=== PATIENT | female | born 1935 | race Caucasian/White ===

== ENCOUNTER 2017-09-29 11:01 | Observation (INO) | payer OTHER, MEDICARE ==
[~2017-09-29] VITALS: Ht 154.9 cm; Wt 74.9 kg
[~2017-09-29 11:01] MED LIST: ASPIRIN81 M1 PO; ASPIRIN81 M2 PO; BIOTIN 5000MCG PO; CALTRATE 6001 TABLET PO; CENTRUM SILVER1 EAC3 PO; CENTRUM SILVER1 EAC4 PO; D-BIOTIN5 G1 MC; FERROUS SULFAT325 MG PO; FLONASE16 G1 BOTH NARES; FOLIC ACID0.4 MG PO; HYDROCODON-ACE1 EAC5 PO; KLOR-CON M2020 MEQ PO; LISINOPRIL2.5 MG PO; METOPROLOL SUCC50 MG PO; NAPROSYN375 MG PO; NAPROXEN375 M2 PO; NEXIUM40 MG PO; NORCO 5/3251 TABLET PO; OMEPRAZOLE40 M1 PO; OXAYDO5 MG PO; OXYCODONE HCL5 MG PO; PROBIOTIC1 EAC1 PO; SIMVASTATIN20 MG PO; TOPROL XL50 MG PO; VITAMIN B12-FO1 EACH PO; VITAMIN D31000 UNIT PO; XARELTO10 MG PO; ZESTRIL2.5 MG PO
[2017-09-29 12:21] LABS: BASOPHIL (%) 0.3 % (0-1); EOSINOPHIL (%) 1.5 % (0-5); EOSINOPHIL COUNT 0.1 K/uL (0-0.3); HEMATOCRIT 40.1 % (36.0-46.0); HEMOGLOBIN 13.5 G/DL (11.9-15.5); IMMATURE GRANULOCYTE (%) 0.3 % (0.0-0.7); LYMPHOCYTE (%) 21.8 % (15-42); LYMPHOCYTE COUNT 1.6 K/uL (1.0-2.8); MCH 30.7 PG (29.0-34.0); MCHC 33.7 G/DL (30.0-36.0); MCV 91.1 FL (83-99); MONOCYTE (%) 9.5 % (3-12); MONOCYTE COUNT 0.7 K/uL (0-0.8); NEUTROPHIL (%) 66.6 % (45-76); PLATELET COUNT 153 K/uL (156-360); RBC DIS.WIDTH-CV 13.4 % (11.8-14.6); WHITE BLOOD COUNT 7.5 K/uL (4.1-10.2)
[2017-09-29 12:44] LABS: CHLORIDE 107 MEQ/L (99-109); SODIUM 138 MEQ/L (136-147)
[2017-09-29 12:49] LABS: CREATININE 0.7 MG/DL (0.6-1.3); GFR ESTIMATE (CALCULATED) > 59 mL/min/; GLUCOSE 125 mg/dL (70-99); UREA NITROGEN (BUN) 15 mg/dL (9-23)
[2017-09-29 17:57] VITALS: BP 112/53
[2017-09-29] MEDS ORDERED: ELIQUIS5 MG PO (20:37)
[2017-09-29 21:09] VITALS: BP 132/60
[2017-09-30 00:59] VITALS: BP 137/63
[2017-09-30 04:43] VITALS: BP 134/63
[2017-09-30 08:59] VITALS: BP 129/60
[2017-09-30] MEDS ORDERED: FLUOXETINE HCL20 MG PO (09:11)
[2017-09-30] MEDS ORDERED: ROXICODONE5 MG PO (09:13)
[2017-09-30] MEDS ORDERED: CYANOCOBALAM1000 MCG PO (09:14)
[2017-09-30] MEDS ORDERED: VITAMIN D-3 PO (09:14)
[2017-09-30] MEDS ORDERED: CALTRATE 600 +1 EAC1 PO (09:15)
[2017-09-30] MEDS ORDERED: CENTRUM SILVER1 EAC3 PO (09:15)
[2017-09-30] MEDS ORDERED: TYLENOL ARTHRI650 MG PO (09:16)
[2017-09-30 14:03] VITALS: BP 121/76
[2017-09-30 18:03] VITALS: BP 120/65
[2017-09-30 23:32] VITALS: BP 132/81
[2017-10-01 08:19] VITALS: BP 127/60
[2017-10-01 09:06] VITALS: BP 127/67
[2017-10-01] MEDS ORDERED: FERROUS SULFAT325 MG PO (12:48)
[2017-10-01] MEDS ORDERED: PRAVACHOL40 MG PO (14:26)
[2017-10-01] MEDS ORDERED: FLORASTOR250 MG PO (14:27)
[2017-10-01] MEDS ORDERED: THERAGRAN1 TABLET PO (14:28)
[2017-10-01] MEDS ORDERED: PROTONIX40 MG PO (14:28)
[2017-10-01] MEDS ORDERED: FOLIC ACID1 MG PO (14:29)
[2017-10-01] MEDS ORDERED: VITAMIN D31000 UNI2 PO (14:30)
[2017-10-01] MEDS ORDERED: ROXICODONE5 MG PO (14:31)
== END 2017-10-01 13:50 ==
LOC: EME 11:01 → 3EAST 15:22 → EDOF 15:22 → ENRESERV 15:29 → 3EAST 17:21
PROVIDERS: Emergency Medicine
DX: G89.11 Acute pain due to trauma (principal); M97.02XA Periprosthetic fracture around internal prosthetic left hip joint, initial encounter; Z96.641 Presence of right artificial hip joint; R26.89 Other abnormalities of gait and mobility; S30.0XXA Contusion of lower back and pelvis, initial encounter; Z86.711 Personal history of pulmonary embolism; Z79.01 Long term (current) use of anticoagulants; I10 Essential (primary) hypertension; K21.9 Gastro-esophageal reflux disease without esophagitis; I49.3 Ventricular premature depolarization; M19.90 Unspecified osteoarthritis, unspecified site; E78.5 Hyperlipidemia, unspecified; Z90.49 Acquired absence of other specified parts of digestive tract; Z90.710 Acquired absence of both cervix and uterus; Z98.1 Arthrodesis status; Z87.891 Personal history of nicotine dependence; Z82.0 Family history of epilepsy and other diseases of the nervous system; Z88.5 Allergy status to narcotic agent; W01.0XXA Fall on same level from slipping, tripping and stumbling without subsequent striking against object, initial encounter
CPT/HCPCS: 73502; 73700; 80048; 85025; 93005; 97530 GO; 97530 GP; 99281; 99285; G0378; G8978 GP CM; G8979 GP CK; G8980 GP CK; G8987 GO CM; G8988 GO CL; G8989 GO CL; J1885; J2270

== ENCOUNTER 2017-10-01 12:56 | Inpatient (IN) | payer OTHER, MEDICARE ==
[~2017-10-01] VITALS: Ht 154.9 cm; Wt 72.6 kg
[~2017-10-01 12:56] MED LIST changes: +CALTRATE 600 +1 EAC1 PO; +CYANOCOBALAM1000 MCG PO; +ELIQUIS5 MG PO; +FLUOXETINE HCL20 MG PO; +ROXICODONE5 MG PO; +TYLENOL ARTHRI650 MG PO; +VITAMIN D-3 PO
[2017-10-01] MEDS ORDERED: PRAVACHOL40 MG PO (14:26)
[2017-10-01] MEDS ORDERED: FLORASTOR250 MG PO (14:27)
[2017-10-01 14:28] VITALS: BP 112/56
[2017-10-01] MEDS ORDERED: THERAGRAN1 TABLET PO (14:28)
[2017-10-01] MEDS ORDERED: PROTONIX40 MG PO (14:28)
[2017-10-01] MEDS ORDERED: FOLIC ACID1 MG PO (14:29)
[2017-10-01] MEDS ORDERED: VITAMIN D31000 UNI2 PO (14:30)
[2017-10-01] MEDS ORDERED: ROXICODONE5 MG PO (14:31)
[2017-10-02 00:12] VITALS: BP 146/63
[2017-10-02 05:17] VITALS: BP 133/65
[2017-10-02 10:10] LABS: HEMATOCRIT 38.2 % (36.0-46.0); HEMOGLOBIN 12.8 G/DL (11.9-15.5); MCH 30.4 PG (29.0-34.0); MCHC 33.5 G/DL (30.0-36.0); MCV 90.7 FL (83-99); PLATELET COUNT 166 K/uL (156-360); RBC DIS.WIDTH-CV 13.3 % (11.8-14.6); RBC DIS.WIDTH-SD 43.8 % (39-53); RED BLOOD COUNT 4.21 M/uL (3.80-5.20); WHITE BLOOD COUNT 12.1 K/uL (4.1-10.2)
[2017-10-02 10:39] LABS: ALBUMIN 3.7 G/DL (3.2-4.8); ALKALINE PHOSPHATASE 47 IU/L (3-129); ALT (GPT) 24 IU/L (3-49); AST (GOT) 25 IU/L (2-34); CHLORIDE 101 MEQ/L (99-109); CREATININE 0.7 MG/DL (0.6-1.3); GFR ESTIMATE (CALCULATED) > 59 mL/min/; GLUCOSE 109 mg/dL (70-99); POTASSIUM 4.4 MEQ/L (3.7-5.4); SODIUM 136 MEQ/L (136-147); TOTAL PROTEIN 6.8 G/DL (6.4-8.3); UREA NITROGEN (BUN) 17 mg/dL (9-23)
[2017-10-02 14:57] VITALS: BP 128/60
[2017-10-03 06:07] VITALS: BP 132/63
[2017-10-03 14:59] VITALS: BP 129/60
[2017-10-04 05:42] VITALS: BP 124/68
[2017-10-04 15:50] VITALS: BP 128/56
[2017-10-05 05:08] VITALS: BP 170/77
[2017-10-05 15:13] VITALS: BP 132/63
[2017-10-06 04:15] VITALS: BP 118/69
[2017-10-06 15:10] VITALS: BP 114/51
[2017-10-06 21:44] VITALS: BP 126/57
[2017-10-07 04:31] VITALS: BP 109/60
[2017-10-07 15:00] VITALS: BP 98/55
[2017-10-08 05:22] VITALS: BP 116/59
[2017-10-08 16:21] VITALS: BP 97/53
[2017-10-09 04:18] VITALS: BP 124/74
[2017-10-09 15:11] VITALS: BP 112/55
[2017-10-10 03:59] VITALS: BP 122/83
[2017-10-10 15:09] VITALS: BP 113/88
[2017-10-11 06:14] VITALS: BP 134/63
[2017-10-11 07:12] LABS: HEMATOCRIT 34.6 % (36.0-46.0); HEMOGLOBIN 11.6 G/DL (11.9-15.5); MCH 30.4 PG (29.0-34.0); MCHC 33.5 G/DL (30.0-36.0); MCV 90.8 FL (83-99); RBC DIS.WIDTH-CV 13.6 % (11.8-14.6); RBC DIS.WIDTH-SD 44.3 % (39-53); RED BLOOD COUNT 3.81 M/uL (3.80-5.20); WHITE BLOOD COUNT 7.5 K/uL (4.1-10.2)
[2017-10-11 07:25] LABS: PLATELET COUNT 255 K/uL (156-360)
[2017-10-11 07:33] LABS: ALBUMIN 3.1 G/DL (3.2-4.8); ALKALINE PHOSPHATASE 71 IU/L (3-129); ALT (GPT) 18 IU/L (3-49); AST (GOT) 16 IU/L (2-34); CHLORIDE 103 MEQ/L (99-109); CREATININE 0.6 MG/DL (0.6-1.3); GFR ESTIMATE (CALCULATED) > 59 mL/min/; GLUCOSE 104 mg/dL (70-99); LIPASE 6 U/L (1.0-51.0); POTASSIUM 3.9 MEQ/L (3.7-5.4); SODIUM 138 MEQ/L (136-147); TOTAL BILIRUBIN 0.9 MG/DL (0.0-1.0); TOTAL PROTEIN 5.9 G/DL (6.4-8.3); UREA NITROGEN (BUN) 8 mg/dL (9-23)
[2017-10-11 16:05] VITALS: BP 126/50
[2017-10-12 06:00] VITALS: BP 121/54
[2017-10-12 15:50] VITALS: BP 117/52
[2017-10-12 21:02] LABS: APPEARANCE CLOUDY ((CLEAR)); BILIRUBIN NEGATIVE; BLOOD NEGATIVE; COLOR YELLOW ((YELLOW)); GLUCOSE (STRIP) NEGATIVE; KETONES NEGATIVE; LEUKOCYTES LARGE; NITRITE POSITIVE; PROTEIN (STRIP) 30; SPECIFIC GRAVITY 1.015 (1.000-1.030); UROBILINOGEN 0.2 MG/DL (0.2-1.0)
[2017-10-12 21:42] LABS: RED BLOOD CELLS 0-5 /HPF (0-5)
[2017-10-12 21:43] LABS: BACTERIA 3+ /HPF; EPITHELIAL CELLS 1+ /HPF; MUCUS NONE SEEN /LPF; WHITE BLOOD CELLS TNTC /HPF (0-5)
[2017-10-13 05:27] VITALS: BP 130/61
[2017-10-13 10:53] LABS: HEMOGLOBIN 12.1 G/DL (11.9-15.5); MCH 30.8 PG (29.0-34.0); MCHC 33.6 G/DL (30.0-36.0); MCV 91.6 FL (83-99); PLATELET COUNT 258 K/uL (156-360); RBC DIS.WIDTH-CV 13.7 % (11.8-14.6); RBC DIS.WIDTH-SD 45.5 % (39-53); RED BLOOD COUNT 3.93 M/uL (3.80-5.20); WHITE BLOOD COUNT 8.1 K/uL (4.1-10.2)
[2017-10-13 11:24] LABS: ALBUMIN 3.3 G/DL (3.2-4.8); ALKALINE PHOSPHATASE 81 IU/L (3-129); ALT (GPT) 17 IU/L (3-49); AST (GOT) 19 IU/L (2-34); CHLORIDE 103 MEQ/L (99-109); CREATININE 0.6 MG/DL (0.6-1.3); GFR ESTIMATE (CALCULATED) > 59 mL/min/; GLUCOSE 108 mg/dL (70-99); POTASSIUM 4.1 MEQ/L (3.7-5.4); SODIUM 136 MEQ/L (136-147); TOTAL BILIRUBIN 0.9 MG/DL (0.0-1.0); TOTAL PROTEIN 6.2 G/DL (6.4-8.3); UREA NITROGEN (BUN) 8 mg/dL (9-23)
[2017-10-13 15:15] VITALS: BP 118/55
[2017-10-14 04:04] VITALS: BP 151/66
[2017-10-14 15:23] VITALS: BP 102/52
[2017-10-15 05:55] VITALS: BP 136/68
[2017-10-15 15:10] VITALS: BP 111/54
[2017-10-15] MEDS ORDERED: ELIQUIS2.5 MG PO (16:31)
[2017-10-15] MEDS ORDERED: MYLICON,MYLANTA80 MG PO (16:33)
[2017-10-15] MEDS ORDERED: PROTONIX40 MG PO (16:34)
[2017-10-15] MEDS ORDERED: ROXICODONE5 MG PO (16:35)
[2017-10-15 21:29] LABS: C DIFF TOXIN POSITIVE (NEGATIVE)
[2017-10-16 04:53] VITALS: BP 120/70
[2017-10-16 15:16] VITALS: BP 104/56
[2017-10-17 12:44] LABS: HEMOGLOBIN 12.8 G/DL (11.9-15.5); MCH 30.8 PG (29.0-34.0); MCHC 33.7 G/DL (30.0-36.0); MCV 91.6 FL (83-99); PLATELET COUNT 272 K/uL (156-360); RBC DIS.WIDTH-CV 14.2 % (11.8-14.6); RED BLOOD COUNT 4.15 M/uL (3.80-5.20)
[2017-10-17 13:08] LABS: CHLORIDE 103 MEQ/L (99-109); CREATININE 0.6 MG/DL (0.6-1.3); GFR ESTIMATE (CALCULATED) > 59 mL/min/; GLUCOSE 150 mg/dL (70-99); POTASSIUM 4.3 MEQ/L (3.7-5.4); SODIUM 135 MEQ/L (136-147); UREA NITROGEN (BUN) 9 mg/dL (9-23)
[2017-10-17 15:12] VITALS: BP 107/57
[2017-10-18 05:58] VITALS: BP 142/68
[2017-10-18 16:00] VITALS: BP 122/58
[2017-10-19 05:13] VITALS: BP 142/70
[2017-10-19 06:43] LABS: CHLORIDE 104 MEQ/L (99-109); CREATININE 0.6 MG/DL (0.6-1.3); GFR ESTIMATE (CALCULATED) > 59 mL/min/; POTASSIUM 4.4 MEQ/L (3.7-5.4); SODIUM 138 MEQ/L (136-147); UREA NITROGEN (BUN) 9 mg/dL (9-23)
[2017-10-19 06:44] LABS: GLUCOSE 103 mg/dL (70-99)
[2017-10-19] MEDS ORDERED: VANCOCIN HCL125 MG PO (10:11)
== END 2017-10-19 15:14 | DRG 560 ==
LOC: 3WEST 12:56 → ENPENDDIS 10-15 → 3WEST 10-19 15:14
PROVIDERS: Family Medicine; Internal Medicine Gastroenterology; Physical Medicine & Rehabilitation Pain Medicine; Psychiatry & Neurology Neurology
PROC: F07M0ZZ Range of Motion and Joint Mobility Treatment of Musculoskeletal System - Whole Body (ICD-10-PCS; principal; 2017-10-01)
DX: S72.25XD Nondisplaced subtrochanteric fracture of left femur, subsequent encounter for closed fracture with routine healing (principal); M97.02XD Periprosthetic fracture around internal prosthetic left hip joint, subsequent encounter; A04.72 Enterocolitis due to Clostridium difficile, not specified as recurrent; E87.1 Hypo-osmolality and hyponatremia; N30.90 Cystitis, unspecified without hematuria; B96.1 Klebsiella pneumoniae [K. pneumoniae] as the cause of diseases classified elsewhere; R26.2 Difficulty in walking, not elsewhere classified; R41.89 Other symptoms and signs involving cognitive functions and awareness; S30.0XXD Contusion of lower back and pelvis, subsequent encounter; W18.30XD Fall on same level, unspecified, subsequent encounter; I10 Essential (primary) hypertension; K21.9 Gastro-esophageal reflux disease without esophagitis; I49.3 Ventricular premature depolarization; E78.5 Hyperlipidemia, unspecified; D64.9 Anemia, unspecified; F32.9 Major depressive disorder, single episode, unspecified; F41.9 Anxiety disorder, unspecified; K59.00 Constipation, unspecified; M19.90 Unspecified osteoarthritis, unspecified site; Z79.01 Long term (current) use of anticoagulants; Z86.711 Personal history of pulmonary embolism; Z87.891 Personal history of nicotine dependence; Z98.1 Arthrodesis status; Z87.19 Personal history of other diseases of the digestive system
CPT/HCPCS: 71045; 73502; 73700; 74177; 80048; 80053; 81003; 83690; 85027; 87077; 87086; 87186; 87493; 94799; 97110 GO; 97530 GP